=== PATIENT | male | born 1945 | race African-American/Black ===

== ENCOUNTER 2022-11-24 14:24 | Emergency (ER) | payer OTHER ==
[~2022-11-24] VITALS: Ht 180.3 cm; Wt 78.0 kg
[2022-11-24 14:35] VITALS: BP 152/115; PULSE 106; RESP 16; TEMP 98.5; O2SAT 95
[2022-11-24] MEDS ORDERED: MAGNESIUM 1 G PREMIX 100 ML IV ONE (15:15)
[2022-11-24 15:44] LABS: BASOPHILS % 0.6 % (0.0-2.0); EOSINOPHILS % 0.5 % (0.0-5.0); HEMATOCRIT. 34.7 % (42.0-52.0); HEMOGLOBIN. 11.7 g/dL (14.0-18.0); LYMPHOCYTES % 38.3 % (20.0-50.0); MEAN CORPUSCULAR HEMOGLOBIN 31.1 pg (28.0-32.0); MEAN CORPUSCULAR HGB CONC 33.8 g/dL (31.0-37.0); MEAN CORPUSCULAR VOLUME 92.2 fL (80.0-94.0); MEAN PLATELET VOLUME 9.9 fl (7.4-10.4); MONOCYTES % 8.8 % (2.0-8.0); NEUTROPHILS % 51.8 % (40.0-76.0); PLATELET 160 x1000/uL (130-400); RED BLOOD CELL COUNT 3.76 mill/uL (4.7-6.1); RED CELL DISTRIBUTION WIDTH 14.8 % (11.6-14.6); WHITE BLOOD COUNT 7.1 x1000/uL (4.5-11.0)
[2022-11-24 15:51] LABS: INR 1.4; PROTHROMBIN TIME 14.7 sec (9.6-11.0)
[2022-11-24 16:06] LABS: CHLORIDE 111 mEq/L (98-107); INDEX HEMOLYSI 1 (1-3); INDEX ICTERIC 1 (1-4); INDEX LIPEMIC 1 (1-3); POTASSIUM 3.2 mEq/L (3.5-5.1); SODIUM 139 mEq/L (136-145)
[2022-11-24 16:16] LABS: ALANINE AMINOTRANSFERASE 13 IU/L (13-61); ALBUMIN 3.1 g/dL (3.4-5.0); ASPARTATE AMINOTRANSFERASE 29 IU/L (15-37); BILIRUBIN TOTAL 1.7 mg/dL (0.1-1.0); CALCIUM 8.3 mg/dL (8.5-10.1); CARBON DIOXIDE 21 mEq/L (21-32); CREATININE 1.2 mg/dL (0.6-1.3); GLUCOSE 94 mg/dL (70-105); NT PRO B-TYPE NATRIURETIC PEP 19166 pg/mL (5-125); UREA NITROGEN BLOOD 16 mg/dL (7-21)
[2022-11-24 16:25] LABS: TROPONIN I HIGH SENSITIVITY 88 ng/L (<78)
== END 2022-11-24 19:30 | disposition left against medical advice (07) ==
LOC: ER 14:24 → CANBEDREQ 11-26 21:15
DX: I11.0 Hypertensive heart disease with heart failure (principal); I50.9 Heart failure, unspecified; I48.91 Unspecified atrial fibrillation
CPT/HCPCS: 36415; 71045; 80053; 83880; 84484; 85025; 93005; 99285